=== PATIENT | female | born 1975 | race African-American/Black ===

== ENCOUNTER 2022-05-20 11:33 | Emergency (ER) | payer SELFPAY ==
--- OUTSIDE RECORDS SUMMARY | 2022-05-20 11:35 | XMS REPORT | Continuity of Care Document ---
:1975 Author Organization [facility] t Address [address] [place] [address] Care Team Providers Name Role Phone Kj Attending Clinician Unavailable Kj Admitting Clinician Unavailable Payers Payer Name Policy Type Policy Number Effective Date Expiration Date S ource [place] [id number] 2016 00:00:00 [place] Problems This patient has no known problems. Allergies, Adverse Reactions, Alerts This patient has no known allergies or adverse reactions. Medications This patient has no known medications. Procedures This patient has no known procedures. Encounters Start End Encounter Admission Attending Care Care Encounter Source Date/Time Date/Time Type Type Clinicians Facility Department ID 2020-03-05 2020-03-05 Outpatient Kj [facility] [id number] [place] 02:38:00 02:38:00 [facility] Results This patient has no known results.
[2022-05-20] MEDS ORDERED: MORPHINE 4 MG/ML SYR ONE ×2 (12:13→13:51)
[2022-05-20] MEDS ORDERED: ONDANSETRON 4 MG/2 ML VIAL ONE (12:13)
[2022-05-20 12:21] LABS: Absolute Lymphocytes (CBC) 2.4 K/uL (0.7-4.9); Hematocrit 41.9 % (36.0-45.0); Lymphocytes % 25.9 % (15.3-44.8); MCV 88.4 fL (80-100); MPV 8.1 fL (7.6-11.3); RBC Red Blood Cell Count 4.74 M/uL (3.86-4.86)
[2022-05-20 12:38] LABS: Troponin High Sensitivity 3.6 pg/mL (<58.9)
--- NOTE | 2022-05-20 13:15 | RAD REPORT ---
EXAM DESCRIPTION: RAD - Chest Single View - 05/20/2022 12:57 pm CLINICAL HISTORY: CHEST PAIN Chest pain. COMPARISON: No comparisons FINDINGS: Portable technique limits examination quality. The lungs are grossly clear. The heart is normal in size. No displaced fractures. IMPRESSION: No acute intrathoracic process suspected.
--- NOTE | 2022-05-20 13:33 | ER ---
Nurse's Notes [facility] Name: Keri Rodrigues Age: 46 yrs Sex: Female : 1975 Arrival Date: 05/20/2022 Time: 11:35 Bed 13 Private MD: Diagnosis: Chest pain, unspecified;Herpes Zoster Presentation: 05/20 11:37 Chief complaint: Patient states: Awoke Tuesday with R sided neck pain. Noticed bumps to ll1 ride side of neck that goes up to her hairline which is painful. CP and SOB started last night. Coronavirus screen: Vaccine status: Patient reports receiving the 2nd dose of the covid vaccine. Client denies travel out of the [place] in the last 14 days. At this time, the client does not indicate any symptoms associated with coronavirus-19. Ebola Screen: Patient denies travel to an Ebola-affected area in the 21 days before illness onset. Initial Sepsis Screen: Does the patient meet any 2 criteria? No. Patient's initial sepsis screen is negative. Does the patient have a suspected source of infection? Yes: Skin breakdown/wound. Risk Assessment: Do you want to hurt yourself or someone else? Patient reports no desire to harm self or others. Onset of symptoms was May 17, 2022. 11:37 Method Of Arrival: Ambulatory ll1 11:37 Acuity: FESTUS 3 ll1 Historical: - Allergies: 11:45 No Known Allergies; ll1 - PMHx: 11:45 None; ll1 - PSHx: 11:45 Appendectomy; section; ll1 - Immunization history:: Client reports receiving the 2nd dose of the Covid vaccine. - Social history:: Smoking status: Patient denies any tobacco usage or history of. Assessment: 14:01 Reassessment: Pt discharged, will wait 15-20 minutes after morphine administration to [facility]. Vital Signs: 11:37 BP 125 / 83; Pulse 66; Resp 18; Temp 97.8; Pulse Ox 100% ; Weight 127.01 kg; Height 5 ll1 ft. 8 in. (172.72 cm); Pain 10/10; 12:30 BP 132 / 89; Pulse 74; Resp 18; Pulse Ox 99% on R/A; Pain 10/10; eh3 12:52 Pain 3/10; eh3 13:30 BP 131 / 81; Pulse 72; Resp 16; Pulse Ox 96% on R/A; Pain 7/10; eh3 11:37 Body Mass Index 42.57 (127.01 kg, 172.72 cm) ll1 Vitals: 12:30 Cardiac Rhythm Assessment Sinus rhythm. eh3 ED Course: 11:35 Patient arrived in ED. as 11:41 Triage completed. ll1 11:43 Natalee Torre FNP-C is [facility]. kb 11:43 Riki Clay DO is Attending Physician. kb 11:45 Carmelo Lopez NP is PHCP. kb 11:46 Arm band placed on. ll1 11:51 Hollie Oconnor, RN is Primary Nurse. ko1 12:59 XRAY Chest (1 view) In Process Unspecified. EDMS 14:17 No provider procedures requiring assistance completed. IV discontinued, intact, mb9 bleeding controlled, No redness/swelling at site. Pressure dressing applied. Administered Medications: 12:40 Drug: morphine 4 mg Route: IVP; Infused Over: 4 mins; Site: right antecubital; eh3 12:52 Follow up: Pain 3/10 Adult; Response: Pain is decreased eh3 12:40 Drug: Zofran (Ondansetron) 4 mg Route: IVP; Site: right antecubital; eh3 12:52 Follow up: Response: No adverse reaction eh3 13:53 Drug: valACYclovir 1000 mg Route: PO; eh3 13:55 Drug: morphine 4 mg Route: IVP; Infused Over: 4 mins; Site: right antecubital; 3 Outcome: 13:33 Discharge ordered by MD. pm1 14:17 Discharged to home ambulatory. mb9 14:17 Condition: stable 14:17 Discharge instructions given to patient, Instructed on discharge instructions, follow up and referral plans. Demonstrated understanding of instructions, follow-up care, medications, Prescriptions given X 2. 14:18 Patient left the ED. mb9 Signatures: Dispatcher [employer] EDIN Natalee Torre FNP-C FNP-Kelli Bunn as Carmelo Lopez NP OFFICE MACHINE INSTALLER pm1 Ju Shepherd RN RN 1 Destiny Crowley RN RN 3 Hollie Oconnor, LYNETTE RN ko1 Becky Paz RN RN mb9 Corrections: (The following items were deleted from the chart) 11:45 11:37 Acuity: FESTUS 4 ll1 ll1 11:47 11:37 Pulse 66bpm; Resp 18bpm; Pulse Ox 100%; Temp 97.8F; 127.01 kg; Height 5 ft. 8 ll1 in.; BMI: 42.5; Pain 10/10; ll1
--- NOTE | 2022-05-20 13:34 | EDPHYS ---
Physician Documentation [facility] Name: Keri Rodrigues Age: 46 yrs Sex: Female : 1975 Arrival Date: 05/20/2022 Time: 11:35 Bed 13 Private MD: ED Physician Riki Clay HPI: 05/20 11:46 This 46 yrs old Female presents to ER via Ambulatory with complaints of Chest Pain, pm1 Shortness Of Breath, Rash on Neck. 11:46 The patient or guardian reports chest pain that is located primarily in the anterior pm1 aspect of right upper chest. Onset: yesterday. The pain does not radiate. Associated signs and symptoms: Pertinent positives: shortness of breath defined as chest pain with deep breathing, Pertinent negatives: abdominal pain, nausea, vomiting. The chest pain is described as burning. Duration: The patient or guardian reports a single episode, that is still ongoing. Modifying factors: The symptoms are alleviated by nothing. the symptoms are aggravated by deep breath, palpation of area. Severity of pain: in the emergency department the pain is actually worse. The patient has not experienced similar symptoms in the past. The patient has not recently seen a physician. Patient reports of burning pain to right chest and right side of neck onset about 2-3 days ago. Yesterday onset of raised rash to right side of neck. Patient denies seeing an insect bite her on the right side of her neck. Rash is described as burning and painful. No rash present to her right side of her chest. Historical: - Allergies: 11:45 No Known Allergies; ll1 - PMHx: 11:45 None; ll1 - PSHx: 11:45 Appendectomy; section; ll1 - Immunization history:: Client reports receiving the 2nd dose of the Covid vaccine. - Social history:: Smoking status: Patient denies any tobacco usage or history of. ROS: 11:46 Constitutional: Negative for fever, chills, and weight loss. pm1 11:46 Abdomen/GI: Negative for abdominal pain, nausea, vomiting, diarrhea, and constipation, Back: Negative for injury and pain, MS/Extremity: Negative for injury and deformity, Skin: Negative for injury, rash, and discoloration, Neuro: Negative for headache, weakness, numbness, tingling, and seizure. 11:46 Neck: Positive for of the pain to right side of neck. 11:46 Cardiovascular: Positive for chest pain, of the anterior aspect of right upper chest. 11:46 Respiratory: Positive for sob - chest pain with deep breathing. 11:46 All other systems are negative. Exam: 11:46 Constitutional: This is a well developed, well nourished patient who is awake, alert, pm1 and in no acute distress. Head/Face: Normocephalic, atraumatic. 11:46 Back: No spinal tenderness. No costovertebral tenderness. Full range of motion. Skin: Warm, dry with normal turgor. Normal color with no rashes, no lesions, and no evidence of cellulitis. MS/ Extremity: Pulses equal, no cyanosis. Neurovascular intact. Full, normal range of motion. 11:46 Eyes: Exam is negative for acute changes, Extraocular movements: no acute changes, Conjunctiva: no acute changes, no injection. 11:46 Neck: tenderness to rash on right side of neck. 11:46 Cardiovascular: Exam negative for acute changes, Rate: normal, Rhythm: regular, Pulses: no pulse deficits are appreciated, Heart sounds: normal, normal S1and S2. 11:46 Respiratory: Exam negative for acute changes, respiratory distress, shortness of breath, Breath sounds: are clear throughout. 11:46 Abdomen/GI: Exam negative for acute changes, Inspection: abdomen appears normal, Palpation: abdomen is soft and non-tender, in all quadrants. 11:46 Skin: Appearance: normal except for affected area, consistent with zoster, on the right lateral aspect of neck. 11:46 Neuro: Exam negative for acute changes, Orientation: is normal, Mentation: is normal, Motor: is normal, moves all fours. 12:04 ECG was reviewed by the Attending Physician. ms3 Vital Signs: 11:37 BP 125 / 83; Pulse 66; Resp 18; Temp 97.8; Pulse Ox 100% ; Weight 127.01 kg; Height 5 ll1 ft. 8 in. (172.72 cm); Pain 10/10; 12:30 BP 132 / 89; Pulse 74; Resp 18; Pulse Ox 99% on R/A; Pain 10/10; eh3 12:52 Pain 3/10; eh3 13:30 BP 131 / 81; Pulse 72; Resp 16; Pulse Ox 96% on R/A; Pain 7/10; eh3 11:37 Body Mass Index 42.57 (127.01 kg, 172.72 cm) ll1 MDM: 11:44 Patient medically screened. kb 13:30 Data reviewed: vital signs. pm1 13:30 Differential diagnosis: acute myocardial infarction, chest wall pain, herpes zoster, pm1 pneumonia, insect bite, cellulitis. 13:30 Counseling: I had a detailed discussion with the patient and/or guardian regarding: the pm1 historical points, exam findings, and any diagnostic results supporting the discharge/admit diagnosis, lab results, radiology results, the need for outpatient follow up, to return to the emergency department if symptoms worsen or persist or if there are any questions or concerns that arise at home. 05/20 11:46 Order name: Basic Metabolic Panel; Complete Time: 12:53 pm1 05/20 11:46 Order name: CBC with Diff; Complete Time: 12:53 pm1 05/20 11:46 Order name: Troponin HS; Complete Time: 12:53 pm1 05/20 11:46 Order name: XRAY Chest (1 view); Complete Time: 13:19 pm1 05/20 11:46 Order name: EKG; Complete Time: 11:47 pm1 05/20 11:46 Order name: Cardiac monitoring; Complete Time: 12:04 pm1 05/20 11:46 Order name: EKG - Nurse/Tech; Complete Time: 12:13 pm1 05/20 11:46 Order name: IV Saline Lock; Complete Time: 12:13 pm1 05/20 11:46 Order name: Labs collected and sent; Complete Time: 12:13 pm1 05/20 11:46 Order name: O2 Per Protocol; Complete Time: 12:04 pm05/20 11:46 Order name: O2 Sat Monitoring; Complete Time: 12:04 pm1 EC:04 Rate is 73 beats/min. Rhythm is regular. QRS [place] is Normal. [place] interval is normal. QRS ms3 interval is normal. Clinical impression: Normal ECG. Interpreted by me. Reviewed by me. Administered Medications: 12:40 Drug: morphine 4 mg Route: IVP; Infused Over: 4 mins; Site: right antecubital; eh3 12:52 Follow up: Pain 3/10 Adult; Response: Pain is decreased eh3 12:40 Drug: Zofran (Ondansetron) 4 mg Route: IVP; Site: right antecubital; 3 12:52 Follow up: Response: No adverse reaction 3 13:53 Drug: valACYclovir 1000 mg Route: PO; eh3 13:55 Drug: morphine 4 mg Route: IVP; Infused Over: 4 mins; Site: right antecubital; eh3 Disposition: 19:25 Co-signature as Attending Physician, Rkii Clay DO I reviewed the patient's care ms3 provided by the Advanced Practice Provider and agree with the diagnosis and treatment plan. Disposition Summary: 05/20/22 13:33 Discharge Ordered Location: Home pm1 Problem: new pm1 Symptoms: have improved pm1 Condition: Stable pm1 Diagnosis - Chest pain, unspecified pm1 - Herpes Zoster pm1 Followup: pm1 - With: Emergency Department - When: As needed - Reason: Worsening of condition Followup: pm1 - With: Private Physician - When: 2 - 3 days - Reason: Recheck today's complaints, Continuance of care, Re-evaluation by your physician Discharge Instructions: - Discharge Summary Sheet pm1 - Nonspecific Chest Pain, Adult pm1 - Shingles pm1 Forms: - Medication Reconciliation Form pm1 - Thank You Letter pm1 - Antibiotic Education pm1 - Prescription Opioid Use pm1 Prescriptions: - valacyclovir 1 gram Oral tablet - take 1 tablet by ORAL route every 8 hours for 7 days; 21 tablet; Refills: 0, pm1 Product Selection Permitted - Tylenol-Codeine #3 300 mg-30 mg Oral - take 2 tablet by ORAL route every 6 hours As needed; 20 tablet; Refills: 0, pm1 Product Selection Permitted Signatures: Dispatcher [employer] Natalee Payan, JASPER-Júnior HUTCHINSON-Carmelo Fuller NP SPEEDER WORKER pm1 Ju Shepherd, RN RN 1 Riki Clay DO DO ms3 Destiny Crowley RN RN eh3
[2022-05-20] MEDS ORDERED: VALACYCLOVIR 500 MG TAB ONE (13:51)
[2022-05-20 14:55] VITALS: TEMP 97.8
[2022-05-20 14:58] VITALS: BP 131/81; O2SAT 96
== END 2022-05-20 14:18 | disposition home or self-care (01) ==
LOC: ER 11:33
DX: R07.89 Other chest pain (principal); B02.9 Zoster without complications
CPT/HCPCS: 36415; 71045; 80048; 84484; 85025; 93005; 96374; 96375; 99283; J2405